=== PATIENT | female | born 1985 | race Caucasian/White ===

== ENCOUNTER → 2018-10-16 14:02 | Outpatient (CLI) | payer OTHER, SELFPAY ==
[2018-10-16 16:19] LABS: Urine N gonorrhoeae NOT DETECTED
[2018-10-16 18:38] LABS: Urine Chlamydia NOT DETECTED
== END ==
PROVIDERS: Family Provider Family Medicine; PCP Family Medicine; Visit Provider Physician Assistant
DX: N89.8 Other specified noninflammatory disorders of vagina (principal); R39.9 Unspecified symptoms and signs involving the genitourinary system
CPT/HCPCS: 87077; 87086; 87147; 87210; 87491; 87591

== ENCOUNTER → 2018-10-20 11:16 | Outpatient (CLI) | payer OTHER, SELFPAY | PROVIDERS: Family Provider Family Medicine; PCP Family Medicine; Visit Provider Physician Assistant | DX: N39.0 Urinary tract infection, site not specified (principal) | CPT/HCPCS: 87086 ==

== ENCOUNTER 2018-10-23 11:58 | Emergency (ER) | payer OTHER, SELFPAY ==
[2018-10-23 12:07] VITALS: BP 97/59; PULSE 68; RESP 16; TEMP 36.9; O2SAT 100; BMI 19.5
--- NOTE | 2018-10-23 13:44 | ED.FEMALEGU ---
HPI - Female Genitourinary <Lyric Bonilla PA-C - Last Filed: 10/23/18 22:08> General Chief complaint: Urogenital-Female Stated complaint: kidney pain, thinks possible UTI Time Seen by Provider: 10/23/18 14:01 Source: patient Mode of arrival: ambulatory Limitations: no limitations History of Present Illness HPI Narrative: This healthy 33-year-old female comes in due to worsening flank pain. She states that a week ago, she went to the walk-in clinic due to burning, urgency and discharge. Vaginal cultures were done and strep infection was found. She was started on metronidazole orally (she has 3 more days to finish this). She was not found to have a UTI at that time. Four days ago, she began to feel like she had a urinary infection and was seen there again, did test positive for UTI and was started on Cipro 500 mg b.i.d.. She was having some mild flank pain at that time. This was mostly on the right, but she states flank pain has progressively increased and since last night more on the left side. It is better lying flat. She states she has not had any recurrent vaginal discharge, no specific STD concerns. She has not had any vomiting, states she has very mild nausea and reduced appetite. She denies fever, chills, sweats. She denies any diarrhea. She denies any bowel habit change. She denies any chest pain, dyspnea, new pain in the extremities, recent travel or exposures. No new exercise or activity. She has not had any upper respiratory symptoms, denies any other new symptoms on systems review. She states she is not on any new medications but did start taking collagen powder couple of weeks ago. Related Data Home Medications Medication Instructions Recorded Confirmed ciprofloxacin HCl 500 mg PO BIDX7 10/23/18 10/23/18 metronidazole 1 applicator VAG DAILYX5 10/23/18 10/23/18 Previous Rx's Medication Instructions Recorded clindamycin phosphate 1 applicator VAG BEDTIME 5 Days 10/23/18 #40 gram cyclobenzaprine 10 mg PO Q8H PRN #14 tab 10/23/18 Allergies Allergy/AdvReac Type Severity Reaction Status Date / Time No Known Drug Allergies Allergy Verified 10/23/18 12:07 Review of Systems <Lyric Bonilla PA-C - Last Filed: 10/23/18 22:08> Review of Systems All systems reviewed & are unremarkable except as noted in HPI and below PFSH <Lyric Bonilla PA-C - Last Filed: 10/23/18 22:08> Comment: No street drugs, minimal EtOH Exam <Lyric Bonilla PA-C - Last Filed: 10/23/18 22:08> Narrative Exam Narrative: GENERAL APPEARANCE: Patient sitting comfortably, in no distress. HEENT: PERRL, EOMI, no scleral icterus, conjunctivae pink NECK: Supple LUNGS: Clear to auscultation bilaterally. HEART: Rate and rhythm regular, normal S1 and S2, no S3 or S4. ABDOMEN: Soft, nontender, nondistended, bowel sounds present x 4 quadrants, no masses palpable, no hepatosplenomegaly. +left greater>Right CVAT EXTREMITIES: No edema, no calf tenderness DERMATOLOGIC: No jaundice or exanthem NEUROLOGIC: Alert and oriented with normal speech and coordination Initial Vital Signs Initial Vital Signs: Vital Signs Temperature 98.4 F 10/23/18 12:07 Pulse Rate 68 10/23/18 12:07 Respiratory Rate 16 10/23/18 12:07 Blood Pressure 97/59 L 10/23/18 12:07 Pulse Oximetry 100 10/23/18 12:07 <Camille Bernabe DO - Last Filed: 10/24/18 08:51> Initial Vital Signs Initial Vital Signs: Vital Signs Temperature 98.4 F 10/23/18 12:07 Pulse Rate 68 10/23/18 12:07 Respiratory Rate 16 10/23/18 12:07 Blood Pressure 97/59 L 10/23/18 12:07 Pulse Oximetry 100 10/23/18 12:07 Course <KATHARINA Porter Last Filed: 10/23/18 22:08> Additional Information: Patient did not take ibuprofen here in the ED due to concern for taking a lot of medication recently. We discussed that given her increased pain with movement and position change, this certainly may be musculoskeletal. She also may have some GI upset related to antibiotic she has been taking. Currently no evidence of UTI or pyelonephritis, and a short course of Cipro would have been sufficient for Staph saprophyticus that showed in her urine. She has been on metronidazole for vaginal strep infection and may be having some side effects from that as well, so will change to vaginal clindamycin. She is agreeable with discontinuing these, trying ibuprofen and Flexeril if needed, and following up with PCP office in a few days to assess progress. She agreed to return if any new or acutely worsening symptoms Orders Ordered: Discontinued Medications Ibuprofen (Advil) 800 mg PO NOW ONE Stop: 10/23/18 14:13 Last Admin: 10/23/18 15:46 Dose: Not Given Vital Signs - 8 hr 10/23/18 14:20 Pulse Rate 52 L Respiratory Rate 15 Blood Pressure [Right Arm] 97/61 Pulse Oximetry 100 <Camille Bernabe DO - Last Filed: 10/24/18 08:51> Orders Ordered: Discontinued Medications Ibuprofen (Advil) 800 mg PO NOW ONE Stop: 10/23/18 14:13 Last Admin: 10/23/18 15:46 Dose: Not Given Vital Signs - 8 hr 10/23/18 14:20 Pulse Rate 52 L Respiratory Rate 15 Blood Pressure [Right Arm] 97/61 Pulse Oximetry 100 MDM - Female Genitourinary <Lyric Bonilla PA-C - Last Filed: 10/23/18 22:08> Lab Data Attestation: I reviewed the patient's lab results. Result diagrams: 10/23/18 15:24 10/23/18 15:24 Lab Results 10/23/18 10/23/18 10/23/18 Range/Units 12:27 14:27 15:24 WBC 6.0 (4.5-11.0) X10^3/uL RBC 4.17 (4.0-5.2) X10^6/uL Hgb 13.2 (12.0-16.0) g/dL Hct 37.6 (36-46) % MCV 90.3 (80-100) fL MCH 31.6 (26-34) PG MCHC 35.0 (30-36) % RDW 13.5 (11.6-14.8) % Plt Count 280 (150-400) X10^3/uL Neut % (Auto) 58.6 (50-75) % Lymph % (Auto) 29.4 (25-40) % [place] % (Auto) 7.9 (3-14) % Eos % (Auto) 2.9 (2-4) % Baso % (Auto) 1.2 (0-2) % Neut # (Auto) 3500 (2291-6647) /uL Sodium (137-145) mmol/L Potassium (3.4-5.1) mmol/L Chloride (98-107) mmol/L Carbon Dioxide (22-32) mmol/L BUN (7-17) mg/dL Creatinine (0.52-1.04) mg/dL Estimated GFR (>60) mL/min BUN/Creatinine Ratio (6-22) Glucose (70-100) mg/dL Calcium (8.4-10.2) mg/dL Total Bilirubin (0.2-1.3) mg/dL AST (14-36) IU/L ALT (9-52) IU/L Alkaline Phosphatase (38-126) U/L Total Protein (6.3-8.2) g/dL Albumin (3.5-5.0) g/dL Globulin (1.7-4.1) g/dL Albumin/Globulin Ratio (1.0-2.8) Lipase (23-300) U/L Urine Color Yellow Urine Appearance Clear Urine pH 7.0 (4.5-8.0) Ur Specific [place] <=1.005 (1.000-1.035) Urine Protein Negative (Negative) Urine Glucose (UA) Negative (Normal) g/dL Urine Ketones Negative (NEGATIVE) Urine Occult Blood Negative (Negative) Urine Nitrate Negative (Negative) Urine Bilirubin Negative (NEGATIVE) Urine Urobilinogen 0.2 (0.2) E.U./dL Ur Leukocyte Esterase Negative (NEGATIVE) Urine RBC None seen (0-5/HPF) Urine WBC None seen (0-5/HPF) Ur Squamous Epith Cells 1-5 /hpf Urine Bacteria None seen (None) Ur Culture Indicated? Cult not indicated Micro UA Comment Microscopic normal 10/23/18 Range/Units 15:24 WBC (4.5-11.0) X10^3/uL RBC (4.0-5.2) X10^6/uL Hgb (12.0-16.0) g/dL Hct (36-46) % MCV (80-100) fL MCH (26-34) PG MCHC (30-36) % RDW (11.6-14.8) % Plt Count (150-400) X10^3/uL Neut % (Auto) (50-75) % Lymph % (Auto) (25-40) % [place] % (Auto) (3-14) % Eos % (Auto) (2-4) % Baso % (Auto) (0-2) % Neut # (Auto) (0374-7113) /uL Sodium 140 (137-145) mmol/L Potassium 4.4 (3.4-5.1) mmol/L Chloride 103 (98-107) mmol/L Carbon Dioxide 26 (22-32) mmol/L BUN 11 (7-17) mg/dL Creatinine 0.60 (0.52-1.04) mg/dL Estimated GFR > 60.0 (>60) mL/min BUN/Creatinine Ratio 18.3 (6-22) Glucose 85 (70-100) mg/dL Calcium 9.2 (8.4-10.2) mg/dL Total Bilirubin 0.6 (0.2-1.3) mg/dL AST 18 (14-36) IU/L ALT 16 (9-52) IU/L Alkaline Phosphatase 39 (38-126) U/L Total Protein 7.1 (6.3-8.2) g/dL Albumin 4.5 (3.5-5.0) g/dL Globulin 2.6 (1.7-4.1) g/dL Albumin/Globulin Ratio 1.7 (1.0-2.8) Lipase 97 (23-300) U/L Urine Color Urine Appearance Urine pH (4.5-8.0) Ur Specific [place] (1.000-1.035) Urine Protein (Negative) Urine Glucose (UA) (Normal) g/dL Urine Ketones (NEGATIVE) Urine Occult Blood (Negative) Urine Nitrate (Negative) Urine Bilirubin (NEGATIVE) Urine Urobilinogen (0.2) E.U./dL Ur Leukocyte Esterase (NEGATIVE) Urine RBC (0-5/HPF) Urine WBC (0-5/HPF) Ur Squamous Epith Cells Urine Bacteria (None) Ur Culture Indicated? Micro UA Comment Point of Care Testing Test Results Negative Urine Dip Bedside Urine Glucose Negative Bedside Urine Bilirubin - Negative Bedside Urine Ketone - Negative Urine Specific [place] 1.010 Bedside Urine Occult Blood - Negative Bedside Urine pH 7.0 Bedside Urine Protein - Negative Bedside Urine Urobilinogen - Negative Bedside Urine Nitrite - Negative Bedside Urine Leukocytes - Negative Esterase Imaging Data CT scan - abdomen: Radiologist's impression: [address] [address] [address] Scan Report Signed Patient: Missy Enriquez KMR#: [id number] : 1985Acct:[id number] Age/Sex: 33 / FDate of Service: 10/23/18 Loc: ED Accession Number: [id number] Procedure: CT kidney ureter bladder (KUB) Ordering Provider: Lyric Bonilla P.A-C PROCEDURE: CT KIDNEY URETER BLADDER (KUB) INDICATIONS: Left. flank pain, ?stone TECHNIQUE: Noncontrast 5 mm thick sections acquired from the diaphragms to the symphysis. 5 mm thick coronal and sagittal reformats were then performed. For radiation dose reduction, the following was used: automated exposure control, adjustment of mA and/or kV according to patient size. COMPARISON: None. FINDINGS: Image quality: Excellent. Lung bases: Lung bases are clear. Heart size is normal. Urinary system: Both kidneys are normal in size. No kidney stones. No hydronephrosis or perinephric fat stranding. Both ureters appear non-dilated throughout their expected courses. Bladder wall thickness is normal; no calcified bladder stones. Other solid organs: Liver is normal in size. Gallbladder is is partially contracted. Pancreas is normal in contours. Spleen is normal in size. No adrenal nodules. Peritoneum and bowel: Unenhanced bowel loops demonstrate normal wall thickness and caliber. No free fluid or air. Appendix not seen. Nodes and vessels: No retroperitoneal or mesenteric adenopathy by size criteria. Aorta and inferior vena cava are normal in caliber. Abdominal wall: No ventral hernias. Pelvis: No free pelvic fluid. No inguinal hernias or adenopathy. Bones: No suspicious bony lesions. No vertebral body compression fractures. IMPRESSION: 1. No evidence of urinary tract calcification, nor obstruction. 2. Appendix not seen. No evidence of appendicitis. Dictated by: Demetrice Owusu M.D. on 10/23/2018 at 14:58 Approved by: Demetrice Owusu M.D. on 10/23/2018 at 15:00 <Camille Bernabe DO - Last Filed: 10/24/18 08:51> Lab Data Lab Results 10/23/18 10/23/18 10/23/18 Range/Units 12:27 14:27 15:24 WBC 6.0 (4.5-11.0) X10^3/uL RBC 4.17 (4.0-5.2) X10^6/uL Hgb 13.2 (12.0-16.0) g/dL Hct 37.6 (36-46) % MCV 90.3 (80-100) fL MCH 31.6 (26-34) PG MCHC 35.0 (30-36) % RDW 13.5 (11.6-14.8) % Plt Count 280 (150-400) X10^3/uL Neut % (Auto) 58.6 (50-75) % Lymph % (Auto) 29.4 (25-40) % [place] % (Auto) 7.9 (3-14) % Eos % (Auto) 2.9 (2-4) % Baso % (Auto) 1.2 (0-2) % Neut # (Auto) 3500 (4825-8838) /uL Sodium (137-145) mmol/L Potassium (3.4-5.1) mmol/L Chloride (98-107) mmol/L Carbon Dioxide (22-32) mmol/L BUN (7-17) mg/dL Creatinine (0.52-1.04) mg/dL Estimated GFR (>60) mL/min BUN/Creatinine Ratio (6-22) Glucose (70-100) mg/dL Calcium (8.4-10.2) mg/dL Total Bilirubin (0.2-1.3) mg/dL AST (14-36) IU/L ALT (9-52) IU/L Alkaline Phosphatase (38-126) U/L Total Protein (6.3-8.2) g/dL Albumin (3.5-5.0) g/dL Globulin (1.7-4.1) g/dL Albumin/Globulin Ratio (1.0-2.8) Lipase (23-300) U/L Urine Color Yellow Urine Appearance Clear Urine pH 7.0 (4.5-8.0) Ur Specific [place] <=1.005 (1.000-1.035) Urine Protein Negative (Negative) Urine Glucose (UA) Negative (Normal) g/dL Urine Ketones Negative (NEGATIVE) Urine Occult Blood Negative (Negative) Urine Nitrate Negative (Negative) Urine Bilirubin Negative (NEGATIVE) Urine Urobilinogen 0.2 (0.2) E.U./dL Ur Leukocyte Esterase Negative (NEGATIVE) Urine RBC None seen (0-5/HPF) Urine WBC None seen (0-5/HPF) Ur Squamous Epith Cells 1-5 /hpf Urine Bacteria None seen (None) Ur Culture Indicated? Cult not indicated Micro UA Comment Microscopic normal 10/23/18 Range/Units 15:24 WBC (4.5-11.0) X10^3/uL RBC (4.0-5.2) X10^6/uL Hgb (12.0-16.0) g/dL Hct (36-46) % MCV (80-100) fL MCH (26-34) PG MCHC (30-36) % RDW (11.6-14.8) % Plt Count (150-400) X10^3/uL Neut % (Auto) (50-75) % Lymph % (Auto) (25-40) % [place] % (Auto) (3-14) % Eos % (Auto) (2-4) % Baso % (Auto) (0-2) % Neut # (Auto) (3174-1393) /uL Sodium 140 (137-145) mmol/L Potassium 4.4 (3.4-5.1) mmol/L Chloride 103 (98-107) mmol/L Carbon Dioxide 26 (22-32) mmol/L BUN 11 (7-17) mg/dL Creatinine 0.60 (0.52-1.04) mg/dL Estimated GFR > 60.0 (>60) mL/min BUN/Creatinine Ratio 18.3 (6-22) Glucose 85 (70-100) mg/dL Calcium 9.2 (8.4-10.2) mg/dL Total Bilirubin 0.6 (0.2-1.3) mg/dL AST 18 (14-36) IU/L ALT 16 (9-52) IU/L Alkaline Phosphatase 39 (38-126) U/L Total Protein 7.1 (6.3-8.2) g/dL Albumin 4.5 (3.5-5.0) g/dL Globulin 2.6 (1.7-4.1) g/dL Albumin/Globulin Ratio 1.7 (1.0-2.8) Lipase 97 (23-300) U/L Urine Color Urine Appearance Urine pH (4.5-8.0) Ur Specific [place] (1.000-1.035) Urine Protein (Negative) Urine Glucose (UA) (Normal) g/dL Urine Ketones (NEGATIVE) Urine Occult Blood (Negative) Urine Nitrate (Negative) Urine Bilirubin (NEGATIVE) Urine Urobilinogen (0.2) E.U./dL Ur Leukocyte Esterase (NEGATIVE) Urine RBC (0-5/HPF) Urine WBC (0-5/HPF) Ur Squamous Epith Cells Urine Bacteria (None) Ur Culture Indicated? Micro UA Comment Point of Care Testing Test Results Negative Urine Dip Bedside Urine Glucose Negative Bedside Urine Bilirubin - Negative Bedside Urine Ketone - Negative Urine Specific [place] 1.010 Bedside Urine Occult Blood - Negative Bedside Urine pH 7.0 Bedside Urine Protein - Negative Bedside Urine Urobilinogen - Negative Bedside Urine Nitrite - Negative Bedside Urine Leukocytes - Negative Esterase Discharge Plan Departure Patient Disposition: Home Clinical Impression: Bilateral flank pain Discharge Date/Time: 10/23/18 16:44 Interventions: ED Discharge Assessment Last Done: 10/23/18 16:43 Instructions: DI for Flank Pain Activity Restrictions/Additional Instructions: Please return as we talked about if you have acutely worsening pain, or new symptoms such as vomiting or fever. Otherwise, please stop your Cipro and metronidazole, as it is not clear whether they are continuing to your symptoms. Also please stop your collagen powder since that is new and I am not sure whether any of the ingredients or preservatives could interact with antibiotics and cause stomach upset. I have sent in a prescription for clindamycin vaginal gel for the vaginal infection, as this is unlikely to cause systemic side effects. Your urine tests and lab work today do not show any acute problem, and I suspect that this could be musculoskeletal. Please take ibuprofen, 600-800 mg (3-4 of your [id number] tabs) every 8 hr for the next day or 2 to help with pain, and add the muscle relaxant that I have prescribed for you as needed (do not take that and drive as it can make you sleepy). Please follow-up with your PCP office in the next 2-3 days to reassess and determine whether any other evaluation or treatment are needed Thank you for your kind patience today in our busy emergency department Prescriptions: New cyclobenzaprine 10 mg tablet 10 mg PO Q8H PRN (Reason: muscle spasm/pain) Qty: 14 RF: 0 clindamycin phosphate 2 % cream 1 applicator VAG BEDTIME 5 Days Qty: 40 RF: 0 No Action metronidazole 0.75 % gel 1 applicator VAG [id number] RF: 0 ciprofloxacin HCl 500 mg tablet 500 mg PO BIDX7 RF: 0 Referrals: Amy Lewis ARNP [[facility]] - <Camille Bernabe DO - Last Filed: 10/24/18 08:51> Cosign ED Attending Aranza Attestation: I was immediately available in the department for consultation. Documentation has been reviewed. I agree with assessment and plan.
[2018-10-23 14:20] VITALS: BP 97/61; PULSE 52; RESP 15; O2SAT 100
--- NOTE | 2018-10-23 14:25 | ED_ITS ---
HPI - Female Genitourinary <Lyric Bonilla PA-C - Last Filed: 10/23/18 22:08> General Chief complaint: Urogenital-Female Stated complaint: kidney pain, thinks possible UTI Time Seen by Provider: 10/23/18 14:01 Source: patient Mode of arrival: ambulatory Limitations: no limitations History of Present Illness HPI Narrative: This healthy 33-year-old female comes in due to worsening flank pain. She states that a week ago, she went to the walk-in clinic due to burning , urgency and discharge. Vaginal cultures were done and strep infection was found. She was started on metronidazole orally (she has 3 more days to finish this). She was not found to have a UTI at that time. Four days ago, she began to feel like she had a urinary infection and was seen there again, did test positive for UTI and was started on Cipro 500 mg b.i.d.. She was having some mild flank pain at that time. This was mostly on the right, but she states flank pain has progressively increased and since last night more on the left side. It is better lying flat. She states she has not had any recurrent vaginal discharge, no specific STD concerns. She has not had any vomiting, states she has very mild nausea and reduced appetite. She denies fever, chills , sweats. She denies any diarrhea. She denies any bowel habit change. She denies any chest pain, dyspnea, new pain in the extremities, recent travel or exposures. No new exercise or activity. She has not had any upper respiratory symptoms, denies any other new symptoms on systems review. She states she is not on any new medications but did start taking collagen powder couple of weeks ago. Related Data Home Medications Medication Instructions Recorded Confirmed ciprofloxacin HCl 500 mg PO BIDX7 10/23/18 10/23/18 metronidazole 1 applicator VAG DAILYX5 10/23/18 10/23/18 Previous Rx's Medication Instructions Recorded clindamycin phosphate 1 applicator VAG BEDTIME 5 Days 10/23/18 #40 gram cyclobenzaprine 10 mg PO Q8H PRN #14 tab 10/23/18 Allergies Allergy/AdvReac Type Severity Reaction Status Date / Time No Known Drug Allergies Allergy Verified 10/23/18 12:07 Review of Systems <Lyric Bonilla PA-C - Last Filed: 10/23/18 22:08> Review of Systems All systems reviewed & are unremarkable except as noted in HPI and below PFSH <Lyric Bonilla PA-C - Last Filed: 10/23/18 22:08> Comment: No street drugs, minimal EtOH Exam <Lyric Bonilla PA-C - Last Filed: 10/23/18 22:08> Narrative Exam Narrative: GENERAL APPEARANCE: Patient sitting comfortably, in no distress. HEENT: PERRL, EOMI, no scleral icterus, conjunctivae pink NECK: Supple LUNGS: Clear to auscultation bilaterally. HEART: Rate and rhythm regular, normal S1 and S2, no S3 or S4. ABDOMEN: Soft, nontender, nondistended, bowel sounds present x 4 quadrants, no masses palpable, no hepatosplenomegaly. +left greater>Right CVAT EXTREMITIES: No edema, no calf tenderness DERMATOLOGIC: No jaundice or exanthem NEUROLOGIC: Alert and oriented with normal speech and coordination Initial Vital Signs Initial Vital Signs: Vital Signs Temperature 98.4 F 10/23/18 12:07 Pulse Rate 68 10/23/18 12:07 Respiratory Rate 16 10/23/18 12:07 Blood Pressure 97/59 L 10/23/18 12:07 Pulse Oximetry 100 10/23/18 12:07 <Camille Bernabe DO - Last Filed: 10/24/18 08:51> Initial Vital Signs Initial Vital Signs: Vital Signs Temperature 98.4 F 10/23/18 12:07 Pulse Rate 68 10/23/18 12:07 Respiratory Rate 16 10/23/18 12:07 Blood Pressure 97/59 L 10/23/18 12:07 Pulse Oximetry 100 10/23/18 12:07 Course <KATHARINA Porter Last Filed: 10/23/18 22:08> Additional Information: Patient did not take ibuprofen here in the ED due to concern for taking a lot of medication recently. We discussed that given her increased pain with movement and position change, this certainly may be musculoskeletal. She also may have some GI upset related to antibiotic she has been taking. Currently no evidence of UTI or pyelonephritis, and a short course of Cipro would have been sufficient for Staph saprophyticus that showed in her urine. She has been on metronidazole for vaginal strep infection and may be having some side effects from that as well, so will change to vaginal clindamycin. She is agreeable with discontinuing these, trying ibuprofen and Flexeril if needed, and following up with PCP office in a few days to assess progress. She agreed to return if any new or acutely worsening symptoms Orders Ordered: Discontinued Medications Ibuprofen (Advil) 800 mg PO NOW ONE Stop: 10/23/18 14:13 Last Admin: 10/23/18 15:46 Dose: Not Given Vital Signs - 8 hr 10/23/18 14:20 Pulse Rate 52 L Respiratory Rate 15 Blood Pressure [Right Arm] 97/61 Pulse Oximetry 100 <Camille Bernabe DO - Last Filed: 10/24/18 08:51> Orders Ordered: Discontinued Medications Ibuprofen (Advil) 800 mg PO NOW ONE Stop: 10/23/18 14:13 Last Admin: 10/23/18 15:46 Dose: Not Given Vital Signs - 8 hr 10/23/18 14:20 Pulse Rate 52 L Respiratory Rate 15 Blood Pressure [Right Arm] 97/61 Pulse Oximetry 100 MDM - Female Genitourinary <Lyric Bonilla PA-C - Last Filed: 10/23/18 22:08> Lab Data Attestation: I reviewed the patient's lab results. Result diagrams: 10/23/18 15:24 10/23/18 15:24 Lab Results 10/23/18 10/23/18 10/23/18 Range/Units 12:27 14:27 15:24 WBC 6.0 (4.5-11.0) X10^3/uL RBC 4.17 (4.0-5.2) X10^6/uL Hgb 13.2 (12.0-16.0) g/dL Hct 37.6 (36-46) % MCV 90.3 (80-100) fL MCH 31.6 (26-34) PG MCHC 35.0 (30-36) % RDW 13.5 (11.6-14.8) % Plt Count 280 (150-400) X10^3/uL Neut % (Auto) 58.6 (50-75) % Lymph % (Auto) 29.4 (25-40) % Butler % (Auto) 7.9 (3-14) % Eos % (Auto) 2.9 (2-4) % Baso % (Auto) 1.2 (0-2) % Neut # (Auto) 3500 (7427-2233) /uL Sodium (137-145) mmol/L Potassium (3.4-5.1) mmol/L Chloride (98-107) mmol/L Carbon Dioxide (22-32) mmol/L BUN (7-17) mg/dL Creatinine (0.52-1.04) mg/dL Estimated GFR (>60) mL/min BUN/Creatinine Ratio (6-22) Glucose (70-100) mg/dL Calcium (8.4-10.2) mg/dL Total Bilirubin (0.2-1.3) mg/dL AST (14-36) IU/L ALT (9-52) IU/L Alkaline Phosphatase (38-126) U/L Total Protein (6.3-8.2) g/dL Albumin (3.5-5.0) g/dL Globulin (1.7-4.1) g/dL Albumin/Globulin Ratio (1.0-2.8) Lipase (23-300) U/L Urine Color Yellow Urine Appearance Clear Urine pH 7.0 (4.5-8.0) Ur Specific Dora <=1.005 (1.000-1.035) Urine Protein Negative (Negative) Urine Glucose (UA) Negative (Normal) g/dL Urine Ketones Negative (NEGATIVE) Urine Occult Blood Negative (Negative) Urine Nitrate Negative (Negative) Urine Bilirubin Negative (NEGATIVE) Urine Urobilinogen 0.2 (0.2) E.U./dL Ur Leukocyte Esterase Negative (NEGATIVE) Urine RBC None seen (0-5/HPF) Urine WBC None seen (0-5/HPF) Ur Squamous Epith Cells 1-5 /hpf Urine Bacteria None seen (None) Ur Culture Indicated? Cult not indicated Micro UA Comment Microscopic normal 10/23/18 Range/Units 15:24 WBC (4.5-11.0) X10^3/uL RBC (4.0-5.2) X10^6/uL Hgb (12.0-16.0) g/dL Hct (36-46) % MCV (80-100) fL MCH (26-34) PG MCHC (30-36) % RDW (11.6-14.8) % Plt Count (150-400) X10^3/uL Neut % (Auto) (50-75) % Lymph % (Auto) (25-40) % Butler % (Auto) (3-14) % Eos % (Auto) (2-4) % Baso % (Auto) (0-2) % Neut # (Auto) (1262-4269) /uL Sodium 140 (137-145) mmol/L Potassium 4.4 (3.4-5.1) mmol/L Chloride 103 (98-107) mmol/L Carbon Dioxide 26 (22-32) mmol/L BUN 11 (7-17) mg/dL Creatinine 0.60 (0.52-1.04) mg/dL Estimated GFR > 60.0 (>60) mL/min BUN/Creatinine Ratio 18.3 (6-22) Glucose 85 (70-100) mg/dL Calcium 9.2 (8.4-10.2) mg/dL Total Bilirubin 0.6 (0.2-1.3) mg/dL AST 18 (14-36) IU/L ALT 16 (9-52) IU/L Alkaline Phosphatase 39 (38-126) U/L Total Protein 7.1 (6.3-8.2) g/dL Albumin 4.5 (3.5-5.0) g/dL Globulin 2.6 (1.7-4.1) g/dL Albumin/Globulin Ratio 1.7 (1.0-2.8) Lipase 97 (23-300) U/L Urine Color Urine Appearance Urine pH (4.5-8.0) Ur Specific Dora (1.000-1.035) Urine Protein (Negative) Urine Glucose (UA) (Normal) g/dL Urine Ketones (NEGATIVE) Urine Occult Blood (Negative) Urine Nitrate (Negative) Urine Bilirubin (NEGATIVE) Urine Urobilinogen (0.2) E.U./dL Ur Leukocyte Esterase (NEGATIVE) Urine RBC (0-5/HPF) Urine WBC (0-5/HPF) Ur Squamous Epith Cells Urine Bacteria (None) Ur Culture Indicated? Micro UA Comment Point of Care Testing Test Results Negative Urine Dip Bedside Urine Glucose Negative Bedside Urine Bilirubin - Negative Bedside Urine Ketone - Negative Urine Specific Dora 1.010 Bedside Urine Occult Blood - Negative Bedside Urine pH 7.0 Bedside Urine Protein - Negative Bedside Urine Urobilinogen - Negative Bedside Urine Nitrite - Negative Bedside Urine Leukocytes - Negative Esterase Imaging Data CT scan - abdomen: Radiologist's impression: [address] [id number] [address] Scan Report Signed Patient: Missy Enriquez KMR#: [id number] : 1985Acct:[id number] Age/Sex: 33 / FDate of Service: 10/23/18 Loc: ED Accession Number: [id number] Procedure: CT kidney ureter bladder (KUB) Ordering Provider: Lyric Bonilla P.A-C PROCEDURE: CT KIDNEY URETER BLADDER (KUB) INDICATIONS: Left. flank pain, ?stone TECHNIQUE: Noncontrast 5 mm thick sections acquired from the diaphragms to the symphysis. 5 mm thick coronal and sagittal reformats were then performed. For radiation dose reduction, the following was used: automated exposure control, adjustment of mA and/or kV according to patient size. COMPARISON: None. FINDINGS: Image quality: Excellent. Lung bases: Lung bases are clear. Heart size is normal. Urinary system: Both kidneys are normal in size. No kidney stones. No hydronephrosis or perinephric fat stranding. Both ureters appear non-dilated throughout their expected courses. Bladder wall thickness is normal; no calcified bladder stones. Other solid organs: Liver is normal in size. Gallbladder is is partially contracted. Pancreas is normal in contours. Spleen is normal in size. No adrenal nodules. Peritoneum and bowel: Unenhanced bowel loops demonstrate normal wall thickness and caliber. No free fluid or air. Appendix not seen. Nodes and vessels: No retroperitoneal or mesenteric adenopathy by size criteria. Aorta and inferior vena cava are normal in caliber. Abdominal wall: No ventral hernias. Pelvis: No free pelvic fluid. No inguinal hernias or adenopathy. Bones: No suspicious bony lesions. No vertebral body compression fractures. IMPRESSION: 1. No evidence of urinary tract calcification, nor obstruction. 2. Appendix not seen. No evidence of appendicitis. Dictated by: Demetrice Owusu M.D. on 10/23/2018 at 14:58 Approved by: Demetrice Owusu M.D. on 10/23/2018 at 15:00 <Camille Bernabe DO - Last Filed: 10/24/18 08:51> Lab Data Lab Results 10/23/18 10/23/18 10/23/18 Range/Units 12:27 14:27 15:24 WBC 6.0 (4.5-11.0) X10^3/uL RBC 4.17 (4.0-5.2) X10^6/uL Hgb 13.2 (12.0-16.0) g/dL Hct 37.6 (36-46) % MCV 90.3 (80-100) fL MCH 31.6 (26-34) PG MCHC 35.0 (30-36) % RDW 13.5 (11.6-14.8) % Plt Count 280 (150-400) X10^3/uL Neut % (Auto) 58.6 (50-75) % Lymph % (Auto) 29.4 (25-40) % Butler % (Auto) 7.9 (3-14) % Eos % (Auto) 2.9 (2-4) % Baso % (Auto) 1.2 (0-2) % Neut # (Auto) 3500 (8782-6179) /uL Sodium (137-145) mmol/L Potassium (3.4-5.1) mmol/L Chloride (98-107) mmol/L Carbon Dioxide (22-32) mmol/L BUN (7-17) mg/dL Creatinine (0.52-1.04) mg/dL Estimated GFR (>60) mL/min BUN/Creatinine Ratio (6-22) Glucose (70-100) mg/dL Calcium (8.4-10.2) mg/dL Total Bilirubin (0.2-1.3) mg/dL AST (14-36) IU/L ALT (9-52) IU/L Alkaline Phosphatase (38-126) U/L Total Protein (6.3-8.2) g/dL Albumin (3.5-5.0) g/dL Globulin (1.7-4.1) g/dL Albumin/Globulin Ratio (1.0-2.8) Lipase (23-300) U/L Urine Color Yellow Urine Appearance Clear Urine pH 7.0 (4.5-8.0) Ur Specific Dora <=1.005 (1.000-1.035) Urine Protein Negative (Negative) Urine Glucose (UA) Negative (Normal) g/dL Urine Ketones Negative (NEGATIVE) Urine Occult Blood Negative (Negative) Urine Nitrate Negative (Negative) Urine Bilirubin Negative (NEGATIVE) Urine Urobilinogen 0.2 (0.2) E.U./dL Ur Leukocyte Esterase Negative (NEGATIVE) Urine RBC None seen (0-5/HPF) Urine WBC None seen (0-5/HPF) Ur Squamous Epith Cells 1-5 /hpf Urine Bacteria None seen (None) Ur Culture Indicated? Cult not indicated Micro UA Comment Microscopic normal 10/23/18 Range/Units 15:24 WBC (4.5-11.0) X10^3/uL RBC (4.0-5.2) X10^6/uL Hgb (12.0-16.0) g/dL Hct (36-46) % MCV (80-100) fL MCH (26-34) PG MCHC (30-36) % RDW (11.6-14.8) % Plt Count (150-400) X10^3/uL Neut % (Auto) (50-75) % Lymph % (Auto) (25-40) % Butler % (Auto) (3-14) % Eos % (Auto) (2-4) % Baso % (Auto) (0-2) % Neut # (Auto) (2881-5981) /uL Sodium 140 (137-145) mmol/L Potassium 4.4 (3.4-5.1) mmol/L Chloride 103 (98-107) mmol/L Carbon Dioxide 26 (22-32) mmol/L BUN 11 (7-17) mg/dL Creatinine 0.60 (0.52-1.04) mg/dL Estimated GFR > 60.0 (>60) mL/min BUN/Creatinine Ratio 18.3 (6-22) Glucose 85 (70-100) mg/dL Calcium 9.2 (8.4-10.2) mg/dL Total Bilirubin 0.6 (0.2-1.3) mg/dL AST 18 (14-36) IU/L ALT 16 (9-52) IU/L Alkaline Phosphatase 39 (38-126) U/L Total Protein 7.1 (6.3-8.2) g/dL Albumin 4.5 (3.5-5.0) g/dL Globulin 2.6 (1.7-4.1) g/dL Albumin/Globulin Ratio 1.7 (1.0-2.8) Lipase 97 (23-300) U/L Urine Color Urine Appearance Urine pH (4.5-8.0) Ur Specific Dora (1.000-1.035) Urine Protein (Negative) Urine Glucose (UA) (Normal) g/dL Urine Ketones (NEGATIVE) Urine Occult Blood (Negative) Urine Nitrate (Negative) Urine Bilirubin (NEGATIVE) Urine Urobilinogen (0.2) E.U./dL Ur Leukocyte Esterase (NEGATIVE) Urine RBC (0-5/HPF) Urine WBC (0-5/HPF) Ur Squamous Epith Cells Urine Bacteria (None) Ur Culture Indicated? Micro UA Comment Point of Care Testing Test Results Negative Urine Dip Bedside Urine Glucose Negative Bedside Urine Bilirubin - Negative Bedside Urine Ketone - Negative Urine Specific Dora 1.010 Bedside Urine Occult Blood - Negative Bedside Urine pH 7.0 Bedside Urine Protein - Negative Bedside Urine Urobilinogen - Negative Bedside Urine Nitrite - Negative Bedside Urine Leukocytes - Negative Esterase Discharge Plan Departure Patient Disposition: Home Clinical Impression: Bilateral flank pain Discharge Date/Time: 10/23/18 16:44 Interventions: ED Discharge Assessment Last Done: 10/23/18 16:43 Instructions: DI for Flank Pain Activity Restrictions/Additional Instructions: Please return as we talked about if you have acutely worsening pain, or new symptoms such as vomiting or fever. Otherwise, please stop your Cipro and metronidazole, as it is not clear whether they are continuing to your symptoms. Also please stop your collagen powder since that is new and I am not sure whether any of the ingredients or preservatives could interact with antibiotics and cause stomach upset. I have sent in a prescription for clindamycin vaginal gel for the vaginal infection, as this is unlikely to cause systemic side effects. Your urine tests and lab work today do not show any acute problem, and I suspect that this could be musculoskeletal. Please take ibuprofen, 600-800 mg (3-4 of your over- the-counter tabs) every 8 hr for the next day or 2 to help with pain, and add the muscle relaxant that I have prescribed for you as needed (do not take that and drive as it can make you sleepy). Please follow-up with your PCP office in the next 2-3 days to reassess and determine whether any other evaluation or treatment are needed Thank you for your kind patience today in our busy emergency department Prescriptions: New cyclobenzaprine 10 mg tablet 10 mg PO Q8H PRN (Reason: muscle spasm/pain) Qty: 14 RF: 0 clindamycin phosphate 2 % cream 1 applicator VAG BEDTIME 5 Days Qty: 40 RF: 0 No Action metronidazole 0.75 % gel 1 applicator VAG [id number] RF: 0 ciprofloxacin HCl 500 mg tablet 500 mg PO BIDX7 RF: 0 Referrals: Amy Lewis ARNP [[employer] In[employer]] - <Camille Bernabe DO - Last Filed: 10/24/18 08:51> Cosign ED Attending Aranza Attestation: I was immediately available in the department for consultation. Documentation has been reviewed. I agree with assessment and plan.
--- NOTE | 2018-10-23 14:33 | DI.CT.S_ITS ---
PROCEDURE: CT KIDNEY URETER BLADDER (KUB) INDICATIONS: Left. flank pain, ?stone TECHNIQUE: Noncontrast 5 mm thick sections acquired from the diaphragms to the symphysis. 5 mm thick coronal and sagittal reformats were then performed. For radiation dose reduction, the following was used: automated exposure control, adjustment of mA and/or kV according to patient size. COMPARISON: None. FINDINGS: Image quality: Excellent. Lung bases: Lung bases are clear. Heart size is normal. Urinary system: Both kidneys are normal in size. No kidney stones. No hydronephrosis or perinephric fat stranding. Both ureters appear non-dilated throughout their expected courses. Bladder wall thickness is normal; no calcified bladder stones. Other solid organs: Liver is normal in size. Gallbladder is is partially contracted. Pancreas is normal in contours. Spleen is normal in size. No adrenal nodules. Peritoneum and bowel: Unenhanced bowel loops demonstrate normal wall thickness and caliber. No free fluid or air. Appendix not seen. Nodes and vessels: No retroperitoneal or mesenteric adenopathy by size criteria. Aorta and inferior vena cava are normal in caliber. Abdominal wall: No ventral hernias. Pelvis: No free pelvic fluid. No inguinal hernias or adenopathy. Bones: No suspicious bony lesions. No vertebral body compression fractures. IMPRESSION: 1. No evidence of urinary tract calcification, nor obstruction. 2. Appendix not seen. No evidence of appendicitis. Dictated by: Demetrice Owusu M.D. on 10/23/2018 at 14:58 Approved by: Demetrice Owusu M.D. on 10/23/2018 at 15:00
[2018-10-23 14:37] LABS: Bacteria Urine None Seen; RBC Urine None Seen (0-5/HPF); WBC Urine None Seen (0-5/HPF)
[2018-10-23 14:54] LABS: Appearance Urine UA CLEAR; Bilirubin Urine UA NEGATIVE (NEGATIVE); Color Urine UA YELLOW; Glucose Urine UA NEGATIVE (Normal); Ketones Urine UA NEGATIVE (NEGATIVE); Leukocyte Esterase Urine UA NEGATIVE (NEGATIVE); Nitrite Urine UA NEGATIVE (Negative); Occult Blood Urine UA NEGATIVE (Negative); Protein Urine UA NEGATIVE (Negative); Specific Gravity Urine UA <=1.005 (1.000-1.035); Urobilinogen Urine UA 0.2 E.U./dL (0.2)
[2018-10-23 15:01] LABS: Culture Indicated Urine Cult Not Indicated; Squamous Epithelial Cell Urine 1-5 /HPF; Urine Comments Microscopic Normal
[2018-10-23 15:41] LABS: Add Manual Diff / Slide Review NO; Basophils Percent Auto 1.2 % (0-2); Eosinophils Percent Auto 2.9 % (2-4); Hematocrit 37.6 % (36-46); Hemoglobin 13.2 g/dL (12.0-16.0); Lymphocytes Percent Auto 29.4 % (25-40); Mean Corpuscular Hemoglobin 31.6 PG (26-34); Mean Corpuscular Volume 90.3 fL (80-100); Monocytes Percent Auto 7.9 % (3-14); Neutrophils Absolute Auto 3500 /uL (3000-5900); Neutrophils Percent Auto 58.6 % (50-75); Platelet Count 280 X10^3/uL (150-400); Red Blood Cell Count 4.17 X10^6/uL (4.0-5.2); Red Cell Distribution Width 13.5 % (11.6-14.8)
[2018-10-23 15:55] LABS: Alanine Aminotransferase 16 IU/L (9-52); Albumin 4.5 g/dL (3.5-5.0); Albumin Globulin Ratio 1.7 (1.0-2.8); Alkaline Phosphatase 39 U/L (38-126); Aspartate Aminotransferase 18 IU/L (14-36); BUN Creatinine Ratio 18.3 (6-22); Bilirubin Total 0.6 mg/dL (0.2-1.3); Blood Urea Nitrogen 11 mg/dL (7-17); Calcium 9.2 mg/dL (8.4-10.2); Carbon Dioxide 26 mmol/L (22-32); Chloride 103 mmol/L (98-107); Estimated Glomerular Filt Rate > 60.0 mL/min (>60); Globulin 2.6 g/dL (1.7-4.1); Glucose 85 mg/dL (70-100); HEMOLYSIS < 15 (0-50); Lipase 97 U/L (23-300); Potassium 4.4 mmol/L (3.4-5.1); Sodium 140 mmol/L (137-145); Total Protein 7.1 g/dL (6.3-8.2)
== END 2018-10-23 16:44 | disposition home or self-care (01) ==
PROVIDERS: Emergency Provider Internal Medicine
DX: R10.9 Unspecified abdominal pain (principal)
CPT/HCPCS: 74176; 80053; 81003; 81015; 81025; 83690; 85025; 99282; 99284

== ENCOUNTER → 2019-10-09 10:30 | Outpatient (CLI) | payer OTHER, SELFPAY | PROVIDERS: Visit Provider Physician Assistant | DX: N30.01 Acute cystitis with hematuria (principal) | CPT/HCPCS: 87077; 87086; 87186 ==

== ENCOUNTER → 2020-01-24 17:33 | Outpatient (CLI) | payer OTHER, SELFPAY | PROVIDERS: PCP Student in an Organized Health Care Education/Training Program; Referring Provider Student in an Organized Health Care Education/Training Program; Visit Provider Student in an Organized Health Care Education/Training Program | DX: O02.1 Missed abortion (principal) | CPT/HCPCS: 36415; 86900; 86901 ==

== ENCOUNTER → 2020-06-05 14:53 | Outpatient (CLI) | payer OTHER, SELFPAY ==
--- NOTE | 2020-06-05 | DI.MG.S_ITS ---
BILATERAL DIGITAL DIAGNOSTIC MAMMOGRAM 3D/2D: 06/05/2020 CLINICAL: Left breast pain and lump. Comparison is made to exam dated: 12/23/2010 mammogram - [facility]. The tissue of both breasts is extremely dense, which lowers the sensitivity of mammography. No significant masses, calcifications, or other findings are seen in either breast. No mass in the region of the palpable abnormality or focal pain in the left breast. IMPRESSION: INCOMPLETE: NEEDS ADDITIONAL IMAGING EVALUATION No significant masses, calcifications, or other findings are seen in either breast. Targeted ultrasound of the left breast is recommended and will immediately follow. This exam was interpreted at Station ID: [id number]. NOTE: For mammograms, a report in lay terms will be sent to the patient. Approximately 15% of breast malignancies will not be visualized mammographically. In the management of a palpable breast mass, a negative mammogram must not discourage biopsy of a clinically suspicious lesion. Electronically Signed By: Elvis Zurita M.D. slc/:06/05/2020 16:47:15 ACR BI-RADS Category 0: Incomplete [id number]
--- NOTE | 2020-06-05 | DI.US.S_ITS ---
LIMITED ULTRASOUND OF LEFT BREAST AND AXILLA: 06/05/2020 CLINICAL: Lt breast palpable lump. Comparison is made to exams dated: 06/05/2020 mammogram [facility], 12/23/2010 mammogram [facility], and 12/23/2010 [facility]. Color flow and real-time ultrasound of the left breast axilla were performed. [place] scale images of the real-time examination were reviewed. There is a benign 0.4 cm x 0.4 cm x 0.3 cm round cyst in the left breast at 11 o'clock middle depth. This round cyst is anechoic with posterior acoustic enhancement. This is in the region of the palpable abnormality. Color flow imaging demonstrates that there is no vascularity present. No significant abnormalities were seen sonographically in the left axilla. IMPRESSION: BENIGN There is no sonographic evidence of malignancy. The 0.4 cm simple cyst in the left breast in the region of the palpable abnormality is benign. Exam findings were conveyed to the patient. Patient is advised to monitor the region for significant change. Recommended screening mammogram usually to commence at age 40 unless high risk. This exam was interpreted at Station ID: [id number]. Electronically Signed By: Elvis Zurita M.D. [facility]/:06/05/2020 16:51:55 letter sent: Normal Exam Ultrasound BI-RADS: 2 Benign
== END ==
PROVIDERS: PCP Student in an Organized Health Care Education/Training Program; Referring Provider Student in an Organized Health Care Education/Training Program; Visit Provider Student in an Organized Health Care Education/Training Program
DX: R92.8 Other abnormal and inconclusive findings on diagnostic imaging of breast (principal); N64.4 Mastodynia; N60.02 Solitary cyst of left breast
CPT/HCPCS: 76642; 77066; G0279

== ENCOUNTER → 2020-12-18 15:58 | Outpatient (CLI) | payer OTHER, SELFPAY ==
--- NOTE | 2020-12-18 | DI.US.S_ITS ---
PROCEDURE: US PELVIC COMPLETE INDICATIONS: Encounter for other general counseling and advice TECHNIQUE: Real-time scanning was performed of the pelvic organs, with image documentation. Additional endovaginal scanning was necessary due to incomplete visualization of the adnexal and endometrial structures by transabdominal scanning. COMPARISON: [facility], [place], PELVIC COMPLETE, 10/07/2017, 12:53. FINDINGS: Uterus: Uterus is normal in size at 9.1 x 3.3 x 4.7 cm. The endometrium measures 5.3 mm in combined thickness. Ovaries: Normal ovaries measuring 3.7 x 2.0 x 2.9 cm on the right and 3.1 x 1.3 x 1.1 cm on the left. No adnexal masses seen. Intrinsic ovarian flow seen bilaterally. Other: No pathologic free abdominal or pelvic fluid. IMPRESSION: Normal pelvic ultrasound. Dictated by: Roberto Carlos LOPEZ Interpreted: Elvis Zurita MD on 12/18/2020 at 17:05 Approved by: Elvis Zurita M.D. on 12/18/2020 at 17:28
== END ==
PROVIDERS: PCP Student in an Organized Health Care Education/Training Program; Referring Provider Student in an Organized Health Care Education/Training Program; Visit Provider Student in an Organized Health Care Education/Training Program
DX: Z30.09 Encounter for other general counseling and advice on contraception (principal)
CPT/HCPCS: 76856

== ENCOUNTER → 2021-02-25 14:16 | Outpatient (CLI) | payer OTHER, SELFPAY | PROVIDERS: PCP Student in an Organized Health Care Education/Training Program; Referring Provider Student in an Organized Health Care Education/Training Program; Visit Provider Student in an Organized Health Care Education/Training Program | DX: N94.10 Unspecified dyspareunia (principal); Z53.9 Procedure and treatment not carried out, unspecified reason ==

== ENCOUNTER → 2021-03-11 13:53 | Outpatient (CLI) | payer OTHER, SELFPAY ==
--- NOTE | 2021-03-11 | DI.US.S_ITS ---
PROCEDURE: US PELVIC COMPLETE INDICATIONS: DYSPAREUNIA TECHNIQUE: Real-time scanning was performed of the pelvic organs, with image documentation. Additional endovaginal scanning was necessary due to incomplete visualization of the adnexal and endometrial structures by transabdominal scanning. COMPARISON: [facility], , US PELVIC COMPLETE, 12/18/2020, 16:30. FINDINGS: Uterus: Uterus is normal in size at 7.5 x 5 x 3.5 cm. The endometrium measures 3.6 mm in combined thickness. Intrauterine device is noted in central endometrium. Right crossbar is noted near right uterine wall in the fundus region. No gross endometrial mass or fluid. 7 x 8 x 5 mm intramural fibroid in anterior endometrium is seen near midline. Ovaries: Right ovary measures 3.4 x 2.7 x 2.3 cm in size. Left ovary measures 4.3 x 3.7 x 2.4 cm in size. No gross solid appearing ovarian lesion is seen. Complex/hemorrhagic cyst in left ovary is seen measures 2.3 x 2.6 x 2.4 cm. Normal blood flow is seen in bilateral ovaries on color Doppler images. Other: No pathologic free abdominal fluid. Physiologic amount of free fluid is seen in pelvis. IMPRESSION: 1. Intrauterine device within central endometrial location as above. No endometrial mass or fluid. Small uterine fibroid as above. 2. Possible hemorrhagic cyst or complex cyst in left ovary. No solid appearing ovarian lesion. No evidence of ovarian torsion. Dictated by: Alexandre Torrez M.D. on 03/11/2021 at 17:59 Approved by: Alexandre Torrez M.D. on 03/11/2021 at 18:01
== END ==
PROVIDERS: PCP Student in an Organized Health Care Education/Training Program; Referring Provider Student in an Organized Health Care Education/Training Program; Visit Provider Student in an Organized Health Care Education/Training Program
DX: N94.10 Unspecified dyspareunia (principal); D25.1 Intramural leiomyoma of uterus; N83.202 Unspecified ovarian cyst, left side; Z97.5 Presence of (intrauterine) contraceptive device
CPT/HCPCS: 76830; 76856

== ENCOUNTER → 2021-04-02 09:11 | Outpatient (CLI) | payer OTHER, SELFPAY ==
[2021-04-02 09:56] LABS: Add Manual Diff / Slide Review NO; Basophils Absolute Auto 100 /uL (0-100); Basophils Percent Auto 1.1 % (0-2); Eosinophils Absolute Auto 300 /uL (0-450); Eosinophils Percent Auto 5.3 % (2-4); Hematocrit 38.1 % (36-46); Hemoglobin 12.8 g/dL (12.0-16.0); Lymphocytes Absolute Auto 2000 /uL (1100-4500); Mean Corpuscular HGB Conc 33.6 % (30-36); Mean Corpuscular Hemoglobin 31.1 PG (26-34); Mean Corpuscular Volume 92.3 fL (80-100); Monocytes Absolute Auto 500 /uL (0-900); Monocytes Percent Auto 7.6 % (3-14); Neutrophils Absolute Auto 3600 /uL (1500-7000); Platelet Count 245 X10^3/uL (150-400); Red Blood Cell Count 4.12 X10^6/uL (4.0-5.2); Red Cell Distribution Width 13.1 % (11.6-14.8); White Blood Cell Count 6.6 X10^3/uL (4.5-11.0)
[2021-04-02 10:06] LABS: Alanine Aminotransferase 13 IU/L (<35); Albumin 4.1 g/dL (3.5-5.0); Albumin Globulin Ratio 1.5 (1.0-2.8); Alkaline Phosphatase 41 U/L (38-126); Aspartate Aminotransferase 25 IU/L (14-36); BUN Creatinine Ratio 8.1 (6-22); Bilirubin Total 0.5 mg/dL (0.2-1.3); Blood Urea Nitrogen 5 mg/dL (7-17); Calcium 9.6 mg/dL (8.4-10.2); Carbon Dioxide 28 mmol/L (22-32); Chloride 104 mmol/L (98-107); Creatine Kinase 96 U/L (30-135); Estimated Glomerular Filt Rate > 60.0 mL/min (>60); Globulin 2.8 g/dL (1.7-4.1); Glucose 88 mg/dL (70-100); HEMOLYSIS < 15 (0-50); Potassium 4.1 mmol/L (3.4-5.1); Sodium 138 mmol/L (137-145); Total Protein 6.9 g/dL (6.3-8.2)
[2021-04-02 10:16] LABS: D Dimer < 200 ng/mL (<230)
[2021-04-02 10:18] LABS: Troponin I < 0.012 ng/mL (0.01-0.034)
[2021-04-02 10:38] LABS: COVID19 -Nasal RAPID Negative (Negative); Influenza A - CEPHEID Flu A NEGATIVE (NEGATIVE); Influenza B - CEPHEID Flu B NEGATIVE (NEGATIVE)
== END ==
PROVIDERS: PCP Student in an Organized Health Care Education/Training Program; Referring Provider Student in an Organized Health Care Education/Training Program; Visit Provider Student in an Organized Health Care Education/Training Program
DX: J02.9 Acute pharyngitis, unspecified (principal); R05 Cough; R06.02 Shortness of breath; R42 Dizziness and giddiness; R52 Pain, unspecified; R07.9 Chest pain, unspecified; Z20.822 Contact with and (suspected) exposure to COVID-19
CPT/HCPCS: 36415; 80053; 82550; 84484; 85025; 85379; 87502; 87635

== ENCOUNTER → 2021-10-10 18:22 | Outpatient (CLI) | payer OTHER, SELFPAY | PROVIDERS: PCP Student in an Organized Health Care Education/Training Program; Visit Provider Nurse Practitioner Family | DX: N89.8 Other specified noninflammatory disorders of vagina (principal); N34.3 Urethral syndrome, unspecified | CPT/HCPCS: 87210 ==

== ENCOUNTER → 2021-10-11 10:15 | Outpatient (CLI) | payer OTHER, SELFPAY | PROVIDERS: PCP Student in an Organized Health Care Education/Training Program; Referring Provider Nurse Practitioner Family; Visit Provider Nurse Practitioner Family | DX: N34.3 Urethral syndrome, unspecified (principal) | CPT/HCPCS: 87086 ==

== ENCOUNTER → 2021-10-11 10:19 | Outpatient (ROUT) | payer OTHER, SELFPAY ==
[2021-10-11 11:53] LABS: Urine N gonorrhoeae NOT DETECTED
[2021-10-11 11:58] LABS: Urine Chlamydia NOT DETECTED
== END ==
PROVIDERS: PCP Student in an Organized Health Care Education/Training Program; Visit Provider Nurse Practitioner Family
DX: Z13.9 Encounter for screening, unspecified (principal); N34.3 Urethral syndrome, unspecified
CPT/HCPCS: 87077; 87086; 87491; 87591

== ENCOUNTER → 2022-01-05 08:13 | Outpatient (CLI) | payer OTHER, SELFPAY | PROVIDERS: PCP Student in an Organized Health Care Education/Training Program; Visit Provider Physician Assistant | DX: R30.0 Dysuria (principal) | CPT/HCPCS: 87077; 87086; 87186 ==

== ENCOUNTER → 2022-01-18 09:55 | Outpatient (CLI) | payer OTHER, SELFPAY | PROVIDERS: PCP Student in an Organized Health Care Education/Training Program; Visit Provider Physician Assistant | DX: R30.0 Dysuria (principal) | CPT/HCPCS: 87086; 87210 ==

== ENCOUNTER 2023-03-31 13:30 | Outpatient (RCR) | payer OTHER, SELFPAY ==
--- NOTE | 2023-03-31 17:31 | PT.OIE ---
Current Diagnoses Sacrococcygeal disorders, not elsewhere classified (03/31/23) Other specified disorders of muscle (03/31/23) Pelvic muscle wasting (03/31/23) Past Medical History (Last Reviewed 01/18/22 @ 10:50 by Enedelia Green PA-C) Healthy female adult Past Surgical History (Last Reviewed 01/18/22 @ 10:50 by Enedelia Green PA-C) No significant past surgical history Visit Care Team Role Provider Type Lisa Merino MD Attending Provider Non-Staff Family Provider Primary Care Provider Referring Provider Specialty: SEWING MACHINE ASSEMBLER Address: [address] [place] [address], [id number] Email: Physical Therapy Initial Evaluation PT-OP-A Visit Information Start: 03/31/23 13:32 Freq: Status: Active Protocol: Document 03/31/23 13:33 [facility] (Rec: 03/31/23 14:13 [facility] [id number]) Out-Patient Physical Therapy Visit Information Visit Information Visit Type Initial Evaluation Visit Start Time 13:32 Visit Stop Time 14:15 Total Visit Minutes 43 Visit Number 1 Evaluation Information Evaluation Date 03/31/23 PT-OP-B Current Condition Start: 03/31/23 13:32 Freq: Status: Active Protocol: Document 03/31/23 13:30 [facility] (Rec: 03/31/23 14:13 [facility] [id number]) Current Condition History of Current Condition Onset Date after child 11/23/22 Current Complaints coccyx pain, decreased pelvic floor strength, LBP and sacral pain History of [facility] After she started noting her tailbone has really painful. Sit-stand is really painful and breast feeding is painful. She has done two sessions of massage therapy and it has elped some. 11/23/22 was her child . She notes she also feels numb and is unable to feels sensation with intercourse. She did have some tearing into the labium. She noted tailbone pain approximately 1 week afterward . She notes her sacrum and low back feels jammed. Treatment Goals Patient/Caregiver Goals pt would like to decrease c/o tail bone pain and improve pelvic floor strength PT-OP-C Subjective Start: 03/31/23 13:32 Freq: Status: Active Protocol: Document 03/31/23 17:43 [facility] (Rec: 03/31/23 17:44 [facility] [id number]) Patient Questionnaires Pelvic Pain and Urgency/Frequency Patient Symptom Scale Pelvic Pain Score 9 OP-PT Pain Assessment Location right ASIS Intensity 4 Scale Used Numeric (0 - 10) Frequency Frequent coccyx and sacral pain Intensity 7 Scale Used Numeric (0 - 10) Description Aching Description- Other worse with sit-stand and with sitting Frequency Frequent PT-OP-F Manual Assessment Start: 03/31/23 13:32 Freq: Status: Active Protocol: Document 03/31/23 13:30 [facility] (Rec: 03/31/23 17:22 [facility] [id number]) Manual Assessments Soft Tissue Assessment Soft Tissue Mobility Assessment myofascial tightness and guarding of the left paraspinals and left quadratus lumborum Joint Mobility Assessment Joint Mobility Assessment + tests for SI unlocking on the right side with left side ASLR test PT-OP-I Pelvic Floor Start: 03/31/23 13:32 Freq: Status: Active Protocol: Document 03/31/23 13:30 [facility] (Rec: 03/31/23 17:48 [facility] [id number]) Pelvic Floor Assessment Pelvic Clock Pelvic Clock 12-3 Atrophy Pelvic Clock 3-6 Atrophy Pelvic Clock 6-9 Atrophy Pelvic Clock 9-12 Atrophy Contraction Ability Voluntary Contraction Weak Voluntary Relaxation Weak Manual Muscle Testing Left 2 Manual Muscle Testing Right 2 Manual Muscle Testing Anterior 2 Manual Muscle Testing Posterior 2 Muscle Endurance (Seconds) 4 Comments Pelvic Floor Comments guarding on the left lateral wall of the levator ani PT-OP-J Posture/Palpation/Skin Start: 03/31/23 13:32 Freq: Status: Active Protocol: Document 03/31/23 17:21 [facility] (Rec: 03/31/23 17:21 [facility] [id number]) Palpation Assessment Location left coccygeus Palpation Findings Soft Tissue Tightness,Muscle Guarding,Tenderness Palpation Details tenderness along the muscle as well as the coccyx bone PT-OP-Q Treatments Start: 03/31/23 13:32 Freq: Status: Active Protocol: Document 03/31/23 17:09 [facility] (Rec: 03/31/23 17:21 [facility] [id number]) Therapeutic Exercises Other Exercises quadruped TA facilitation Reps/Minutes x 10 reps paige pose Reps/Minutes hold 1-2 min quadraped thoracic lumbar side bend Reps/Minutes x 10 reps cat cow Reps/Minutes x 10 Comments emphasis on lumbar flexion PT-OP-T Assessment and Plan Start: 03/31/23 13:32 Freq: Status: Active Protocol: Document 03/31/23 13:30 [facility] (Rec: 04/05/23 17:13 [facility] [id number]) Physical Therapy Assessment Rehab Potential Rehabilitation Potential Excellent Evaluation Complexity Number of Personal Factors/Comorbidities 0 Number of Body Systems Impaired 1-2 Clinical Presentation at Evaluation Stable Impairments Impairments Activity Tolerance,Functional Activities,Functional Mobility ,Pain,Posture,ROM,Soft Tissue Mobility,Strength,Tone Goals 3 Impairment Decreased endurance of the pelvic floor muscles Short Term Goal (STG) Missy is able to sustain a pelvic floor contraction in supine x 10 seconds STG Duration 5 weeks Retirement Goal (LTG) Missy is able to sustain a pelvic floor contraction in standing x 5 seconds LTG Duration 12 weeks 2 Impairment urinary incontinence post with pelvic floor weakness Short Term Goal (STG) Missy is educated on pelvic floor strengthening exercises to improve support to her bladder STG Duration 3 weeks Retirement Goal (LTG) Missy is able to improve the strength of her pelvic floor to 3/5 or better with MMT LTG Duration 12 weeks 1 Impairment coccyx, sacral and low back pain rated 7/10 worse with sitting and with sit-stand activities Short Term Goal (STG) Missy is educated on stretches to help with SI and sacral alignment and to relax the coccygeus muscle STG Duration 4 weeks Retirement Goal (LTG) Missy reports a overall reduction in pain and is no longer experiencing pain transfering from sit-stand LTG Duration 12 weeks Assessment Summary Assessment Missy is a 38 year old female 4 months post with c/o coccyx pain and pelvic floor weakness. She c/o pain 7/10 in her sacrum and coccyx region worse with sitting and sit-stand activities. Missy reports c/o urinary incontinence with changing positions such as sit-stand, urgency and leaking with exercise. She describes numbness of her pelvic floor with intercourse. With examination today she is guarded and tight in the left parapsinals and left quadratus lumborum. She presents with SI instability with the right side unlocking with ASLR test. She tests 2/5 MMT for all brewer of the levator ani. Endurance of the pelvic floor is limited to 4 sec hold time. There is tenderness and guarding over the coccygeus musculature and the coccyx bone with internal assessment. Missy was educated on stretches for her low back and pelvis today and she tolerated these well. She is a good candidate for PT for core strengthening and stretching . Manual therapy techniques will also be included in her plan of care. Physical Therapy Plan Frequency and Duration Frequency of Treatment 1x/Week Duration of treatment (weeks) 12 Plan of Care Start Date 03/31/23 Plan of Care End Date 06/23/23 Therapeutic Interventions Therapeutic Interventions Home Exercise Program,Manual Therapy,Patient/Caregiver Education,Self-Care/Home Management,Soft Tissue Mobilization Modalities Biofeedback Next Visit Focus/Plan Next Note Type Treatment Note Next Visit Plan begin EMG biofeedback next visit for pelvic floor strengthening, review exercises given today
--- NOTE | 2023-03-31 17:32 | PT.OPPOC ---
Physical, Occupational & Speech Therapy At [facility] Current Diagnoses Sacrococcygeal disorders, not elsewhere classified (03/31/23) Other specified disorders of muscle (03/31/23) Pelvic muscle wasting (03/31/23) Visit Care Team Role Provider Type Lisa Merino MD Attending Provider Non-Staff Family Provider Primary Care Provider Referring Provider Specialty: PURE PAK MACHINE OPERATOR Address: [address] [place] [address], [id number] Email: Plan Of Care PT-OP-T Assessment and Plan Start: 03/31/23 13:32 Freq: Status: Active Protocol: Document 03/31/23 13:30 [facility] (Rec: 04/05/23 17:13 [facility] [id number]) Physical Therapy Assessment Rehab Potential Rehabilitation Potential Excellent Evaluation Complexity Number of Personal Factors/Comorbidities 0 Number of Body Systems Impaired 1-2 Clinical Presentation at Evaluation Stable Impairments Impairments Activity Tolerance,Functional Activities,Functional Mobility ,Pain,Posture,ROM,Soft Tissue Mobility,Strength,Tone Goals 3 Impairment Decreased endurance of the pelvic floor muscles Short Term Goal (STG) Missy is able to sustain a pelvic floor contraction in supine x 10 seconds STG Duration 5 weeks Penitentiary Goal (LTG) Missy is able to sustain a pelvic floor contraction in standing x 5 seconds LTG Duration 12 weeks 2 Impairment urinary incontinence post with pelvic floor weakness Short Term Goal (STG) Missy is educated on pelvic floor strengthening exercises to improve support to her bladder STG Duration 3 weeks Penitentiary Goal (LTG) Missy is able to improve the strength of her pelvic floor to 3/5 or better with MMT LTG Duration 12 weeks 1 Impairment coccyx, sacral and low back pain rated 7/10 worse with sitting and with sit-stand activities Short Term Goal (STG) Missy is educated on stretches to help with SI and sacral alignment and to relax the coccygeus muscle STG Duration 4 weeks Penitentiary Goal (LTG) Missy reports a overall reduction in pain and is no longer experiencing pain transferring from sit-stand LTG Duration 12 weeks Assessment Summary Assessment Missy is a 38 year old female 4 months post with c/o coccyx pain and pelvic floor weakness. She c/o pain 7/10 in her sacrum and coccyx region worse with sitting and sit-stand activities. Missy reports c/o urinary incontinence with changing positions such as sit-stand, urgency and leaking with exercise. She describes numbness of her pelvic floor with intercourse. With examination today she is guarded and tight in the left parapsinals and left quadratus lumborum. She presents with SI instability with the right side unlocking with ASLR test. She tests 2/5 MMT for all brewer of the levator ani. Endurance of the pelvic floor is limited to 4 sec hold time. There is tenderness and guarding over the coccygeus musculature and the coccyx bone with internal assessment. Missy was educated on stretches for her low back and pelvis today and she tolerated these well. She is a good candidate for PT for core strengthening and stretching . Manual therapy techniques will also be included in her plan of care. Physical Therapy Plan Frequency and Duration Frequency of Treatment 1x/Week Duration of treatment (weeks) 12 Plan of Care Start Date 03/31/23 Plan of Care End Date 06/23/23 Therapeutic Interventions Therapeutic Interventions Home Exercise Program,Manual Therapy,Patient/Caregiver Education,Self-Care/Home Management,Soft Tissue Mobilization Modalities Biofeedback Next Visit Focus/Plan Next Note Type Treatment Note Next Visit Plan begin EMG biofeedback next visit for pelvic floor strengthening, review exercises given today Plan of Care Dates Plan of Care Start Date 03/31/23 Plan of Care End Date 06/23/23 Electronically Signed by: Aria Cotto, PT 04/05/23 2905 If you are in agreement with this Plan of Care, please return a signed and dated copy. I have reviewed this Plan of Care and certify that the skilled therapy services above are required to meet the patient?s needs. Physician Signature Date Printed Name and Credentials Clinical Instructor Signature Printed Name and Credentials
--- NOTE | 2023-05-17 14:33 | PT-OP ANOTE ---
Pt has been seen for initial eval only and has cx 1 and No showed 2 visits since then. She will be DC from PT at this time
--- NOTE | 2023-05-17 14:35 | PT.OPDS ---
Current Diagnoses Sacrococcygeal disorders, not elsewhere classified (03/31/23) Other specified disorders of muscle (03/31/23) Pelvic muscle wasting (03/31/23) Visit Care Team Role Provider Type Lisa Merino MD Attending Provider Non-Staff Family Provider Primary Care Provider Referring Provider Specialty: SEPARATOR OPERATOR Address: [facility], [address] Email: Visit Number Visit Number 1 Discharge Summary PT-OP-B Current Condition Start: 03/31/23 13:32 Freq: Status: Active Protocol: Document 03/31/23 13:30 [facility] (Rec: 03/31/23 14:13 [facility] [id number]) Current Condition History of Current Condition Onset Date after child 11/23/22 Current Complaints coccyx pain, decreased pelvic floor strength, LBP and sacral pain History of Current Condition care and at [facility], went well. After she started noting her tailbone has really painful. Sit-stand is really painful and breast feeding is painful. She has done two sessions of massage therapy and it has elped some. 11/23/22 was her child . She notes she also feels numb and is unable to feels sensation with intercourse. She did have some tearing into the labium. She noted tailbone pain approximately 1 week afterward . She notes her sacrum and low back feels jammed. Treatment Goals Patient/Caregiver Goals pt would like to decrease c/o tail bone pain and improve pelvic floor strength PT-OP-C Subjective Start: 03/31/23 13:32 Freq: Status: Active Protocol: Document 03/31/23 17:43 [facility] (Rec: 03/31/23 17:44 [facility] [id number]) Patient Questionnaires Pelvic Pain and Urgency/Frequency Patient Symptom Scale Pelvic Pain Score 9 OP-PT Pain Assessment Location right ASIS Intensity 4 Scale Used Numeric (0 - 10) Frequency Frequent coccyx and sacral pain Intensity 7 Scale Used Numeric (0 - 10) Description Aching Description- Other worse with sit-stand and with sitting Frequency Frequent PT-OP-F Manual Assessment Start: 03/31/23 13:32 Freq: Status: Active Protocol: Document 03/31/23 13:30 [facility] (Rec: 03/31/23 17:22 [facility] [id number]) Manual Assessments Soft Tissue Assessment Soft Tissue Mobility Assessment myofascial tightness and guarding of the left paraspinals and left quadratus lumborum Joint Mobility Assessment Joint Mobility Assessment + tests for SI unlocking on the right side with left side ASLR test PT-OP-I Pelvic Floor Start: 03/31/23 13:32 Freq: Status: Active Protocol: Document 03/31/23 13:30 [facility] (Rec: 03/31/23 17:48 [facility] [id number]) Pelvic Floor Assessment Pelvic Clock Pelvic Clock 12-3 Atrophy Pelvic Clock 3-6 Atrophy Pelvic Clock 6-9 Atrophy Pelvic Clock 9-12 Atrophy Contraction Ability Voluntary Contraction Weak Voluntary Relaxation Weak Manual Muscle Testing Left 2 Manual Muscle Testing Right 2 Manual Muscle Testing Anterior 2 Manual Muscle Testing Posterior 2 Muscle Endurance (Seconds) 4 Comments Pelvic Floor Comments guarding on the left lateral wall of the levator ani PT-OP-J Posture/Palpation/Skin Start: 03/31/23 13:32 Freq: Status: Active Protocol: Document 03/31/23 17:21 [facility] (Rec: 03/31/23 17:21 [facility] [id number]) Palpation Assessment Location left coccygeus Palpation Findings Soft Tissue Tightness,Muscle Guarding,Tenderness Palpation Details tenderness along the muscle as well as the coccyx bone PT-OP-T Assessment and Plan Start: 03/31/23 13:32 Freq: Status: Active Protocol: Document 05/17/23 14:34 [facility] (Rec: 05/17/23 14:34 [facility] [id number]) Physical Therapy Assessment Assessment Summary Assessment Missy has not shown up for her scheduled PT visit following her initial evaluation. She will be DC at this time
== END 2023-05-18 12:40 | disposition home or self-care (01) ==
LOC: PHYS 13:30
PROVIDERS: Family Provider Obstetrics & Gynecology; PCP Obstetrics & Gynecology; Referring Provider Obstetrics & Gynecology; Visit Provider Obstetrics & Gynecology
DX: M62.89 Other specified disorders of muscle (principal); M53.3 Sacrococcygeal disorders, not elsewhere classified; N81.84 Pelvic muscle wasting
CPT/HCPCS: 97161

== ENCOUNTER → 2024-02-06 12:23 | Outpatient (CLI) | payer OTHER, SELFPAY ==
--- NOTE | 2024-02-06 12:28 | DI.RAD.S_ITS ---
PROCEDURE: XR SACRUM COCCYX MIN 2V INDICATIONS: Coccygeal pain TECHNIQUE: 3 views of the sacrum and coccyx acquired. COMPARISON: None. FINDINGS: Bones: No fractures or dislocations. No suspicious bony lesions. Soft tissues: Visualized bowel gas pattern is normal. No suspicious soft tissue densities. Intrauterine device projecting over the pelvis. IMPRESSION: No acute osseous abnormalities. Dictated by: Zhang Baker M.D. on 02/06/2024 at 15:57 Approved by: Zhang Baker M.D. on 02/06/2024 at 16:01
[2024-02-06 13:23] LABS: Add Manual Diff / Slide Review NO; Basophils Absolute Auto 100 /uL (0-100); Basophils Percent Auto 0.7 % (0-2); Eosinophils Absolute Auto 300 /uL (0-450); Eosinophils Percent Auto 4.1 % (2-4); Hematocrit 37.4 % (36-46); Hemoglobin 12.7 g/dL (12.0-16.0); Lymphocytes Absolute Auto 2400 /uL (1100-4500); Lymphocytes Percent Auto 29.9 % (25-40); Mean Corpuscular HGB Conc 34.1 % (30-36); Mean Corpuscular Hemoglobin 30.8 PG (26-34); Mean Corpuscular Volume 90.3 fL (80-100); Monocytes Absolute Auto 500 /uL (0-900); Monocytes Percent Auto 5.9 % (3-14); Neutrophils Absolute Auto 4700 /uL (1500-7000); Neutrophils Percent Auto 59.4 % (50-75); Platelet Count 259 X10^3/uL (150-400); Red Blood Cell Count 4.14 X10^6/uL (4.0-5.2); Red Cell Distribution Width 13.3 % (11.6-14.8); White Blood Cell Count 7.9 X10^3/uL (4.5-11.0)
[2024-02-06 13:35] LABS: Alanine Aminotransferase 15 IU/L (<35); Albumin 4.3 g/dL (3.5-5.0); Albumin Globulin Ratio 1.5 (1.0-2.8); Alkaline Phosphatase 55 U/L (38-126); Aspartate Aminotransferase 24 IU/L (14-36); BUN Creatinine Ratio 18.3 (6-22); Bilirubin Total 0.6 mg/dL (0.2-1.3); Blood Urea Nitrogen 11 mg/dL (7-17); Calcium 9.3 mg/dL (8.4-10.2); Carbon Dioxide 30 mmol/L (22-32); Chloride 106 mmol/L (98-107); Estimated Glomerular Filt Rate > 60 mL/min (>60); Globulin 2.9 g/dL (1.7-4.1); Glucose 79 mg/dL (70-100); HEMOLYSIS < 15 (0-50); Potassium 4.1 mmol/L (3.4-5.1); Sodium 140 mmol/L (137-145); Total Protein 7.2 g/dL (6.3-8.2)
[2024-02-06 14:05] LABS: TSH w/ Reflex to FT4 1.32 uIU/mL (0.47-4.68)
== END ==
LOC: LAB 12:27
PROVIDERS: Family Provider Obstetrics & Gynecology; PCP Family Medicine; Referring Provider Family Medicine; Visit Provider Family Medicine
DX: M53.3 Sacrococcygeal disorders, not elsewhere classified (principal); R63.4 Abnormal weight loss; F41.9 Anxiety disorder, unspecified; K59.00 Constipation, unspecified
CPT/HCPCS: 36415; 72220; 80053; 84443; 85025